=== PATIENT | male | born 1965 | race Two or more races ===

== ENCOUNTER 2016-02-27 02:36 | Emergency (ER) | payer MEDICAID ==
[~2016-02-27] VITALS: Ht 182.9 cm; Wt 110.2 kg
[~2016-02-27 02:36] MED LIST: ASPI81CH43 PO; ATOR20TA50 PO; LISI40TA PO
[2016-02-27 03:24] LABS: Basophils # (auto) 0 uL; Basophils % (auto) 0.6 % (0.0-2.0); Eosinophils # (auto) 0.1 uL; Hematocrit 44.7 % (41.0-53.0); Hemoglobin 14.6 g/dL (13.5-17.5); Lymphocytes # (auto) 1.8 uL; Lymphocytes % (auto) 25.2 % (10.0-50.0); Mean Corpuscular Hemoglobin 30.2 pg (28.0-32.0); Mean Corpuscular Hgb Conc. 32.8 g/dL (32.0-36.0); Mean Platelet Volume 7.2 fL (7.4-10.4); Monocytes # (auto) 0.5 uL; Neutrophils # (auto) 4.6 uL; Neutrophils % (auto) 65.2 % (37.0-80.0); Platelet Count (auto) 325 10^3/uL (140-450); Red Cell Distribution Width 13.2 % (11.6-16.0); White Blood Cell 7.1 10^3/uL (4.4-10.8)
[2016-02-27 03:48] LABS: Albumin 3.8 g/dL (3.4-5.0); BUN/Creatinine Ratio 13.5; Calcium 8.6 mg/dL (8.5-10.1); Magnesium 2.3 mg/dL (1.6-2.6); Potassium 4.2 mmol/L (3.5-5.1)
[2016-02-27 03:51] LABS: Bilirubin, Total 0.4 mg/dL (0.2-1.0); Total Protein 7.9 g/dL (6.4-8.2)
[2016-02-27] MEDS ORDERED: ONDANSETRON HCL 4 MG/2 ML VIAL IV ONE (09:45)
[2016-02-27] MEDS ORDERED: MORPHINE SULFATE 4 MG/ML SYRG IV ONE (09:45)
[2016-02-27] MEDS ORDERED: ASPirin 81 mg TAB PO ONE (09:45)
[2016-02-27 10:48] LABS: INR 1.02 (0.9-1.15); Partial Thromboplastin Time 29.1 sec (22.64-33.71); Prothrombin Time 10.5 sec (9.37-12.3)
[2016-02-27 10:59] LABS: B-Type Natriuretic Peptide < 5.0 pg/mL (0-100)
[2016-02-27 12:07] VITALS: BP 140/98
== END 2016-02-27 12:10 | disposition left against medical advice (07) ==
LOC: ER 02:37
DX: I24.9 Acute ischemic heart disease, unspecified (principal); I25.2 Old myocardial infarction; I10 Essential (primary) hypertension; I25.10 Atherosclerotic heart disease of native coronary artery without angina pectoris; E78.5 Hyperlipidemia, unspecified; Z79.899 Other long term (current) drug therapy; Z88.8 Allergy status to other drugs, medicaments and biological substances; Z98.61 Coronary angioplasty status
CPT/HCPCS: 36415; 71020; 80053; 83735; 83880; 84484; 85025; 85610; 85730; 93005; 94761

== ENCOUNTER 2022-10-25 09:56 | Emergency (ER) | payer MEDICAID ==
[~2022-10-25] VITALS: Ht 182.9 cm; Wt 116.0 kg
[~2022-10-25 09:56] MED LIST changes: -LISI40TA PO; +LISI40TA16 PO
[2022-10-25] MEDS ORDERED: SODIUM CHLORIDE 0.9% 1,000 ML IV ONE (10:30)
[2022-10-25 10:41] LABS: Basophils # (auto) 0.1 10 ^3/uL (0-0.2); Basophils % (auto) 0.8 % (0.0-2.0); Eosinophils # (auto) 0.1 10 ^3/uL (0-0.8); Eosinophils % (auto) 1.8 % (0.0-7.0); Hematocrit 44.5 % (41.0-53.0); Hemoglobin 14.6 g/dL (13.5-17.5); Lymphocytes # (auto) 1.3 10 ^3/uL (0.4-5.4); Lymphocytes % (auto) 16.7 % (10.0-50.0); Mean Corpuscular Hemoglobin 30.5 pg (28.0-32.0); Mean Corpuscular Hgb Conc. 32.9 g/dL (32.0-36.0); Mean Corpuscular Volume 92.7 fL (80.0-100.0); Monocytes # (auto) 0.6 10 ^3/uL (0-1.3); Neutrophils # (auto) 5.6 10 ^3/uL (1.6-8.6); Neutrophils % (auto) 72.7 % (37.0-80.0); Red Cell Distribution Width 13.7 % (11.8-14.3); White Blood Cell 7.6 10^3/uL (4.4-10.8)
[2022-10-25 11:00] VITALS: RESP 18; O2SAT 98
[2022-10-25 11:09] LABS: Alanine Aminotransferase 46 U/L (7-40); Albumin 4.6 g/dL (3.2-4.8); Alkaline Phosphatase 104 U/L (46-116); Anion Gap 5.9 (5-15); Aspartate Aminotransferase 17 U/L (13-40); BUN/Creatinine Ratio 13.1 (10.0-20.0); Bilirubin, Total 0.4 mg/dL (0.2-1.0); Blood Urea Nitrogen 11 mg/dL (9-23); Calcium 9.6 mg/dL (8.5-10.1); Carbon Dioxide 28.1 mmol/L (20-30); Chloride 105 mmol/L (98-107); Glucose 114 mg/dL (74-106); Potassium 4.2 mmol/L (3.5-5.1); Sodium 139 mmol/L (136-145); Total Protein 7.2 g/dL (5.7-8.2)
[2022-10-25 11:34] LABS: Urine Bacteria NONE SEEN /hpf (None Seen); Urine Blood TRACE /uL (Negative); Urine Clarity Clear (Clear); Urine Color Colorless (Yellow); Urine Protein, UAD Negative (Negative); Urine Specific Gravity 1.006 (1.001-1.035); Urine Urobilinogen Normal (Negative); Urine WBC <1 /hpf (0 - 3); Urine pH 7.5 (5.0-8.0)
[2022-10-25 12:09] VITALS: BP 173/111
[2022-10-25 12:56] VITALS: PULSE 83
== END 2022-10-25 15:42 | disposition left against medical advice (07) ==
LOC: ER 09:56
DX: R53.1 Weakness (principal); E78.5 Hyperlipidemia, unspecified; I10 Essential (primary) hypertension; I25.2 Old myocardial infarction; Z88.6 Allergy status to analgesic agent
CPT/HCPCS: 36415; 71045; 80053; 81001; 82010; 82550; 82962; 83605; 83735; 84484; 85025; 93005; 96360; 99285; J7030

== ENCOUNTER 2023-02-20 04:38 | Emergency (ER) | payer MEDICAID ==
[~2023-02-20] VITALS: Ht 182.9 cm; Wt 118.0 kg
[2023-02-20 05:41] LABS: Basophils # (auto) 0 10 ^3/uL (0-0.2); Basophils % (auto) 0.1 % (0.0-2.0); Eosinophils # (auto) 0 10 ^3/uL (0-0.8); Eosinophils % (auto) 0.4 % (0.0-7.0); Hematocrit 42.4 % (41.0-53.0); Hemoglobin 14.2 g/dL (13.5-17.5); Lymphocytes # (auto) 0.9 10 ^3/uL (0.4-5.4); Lymphocytes % (auto) 14.1 % (10.0-50.0); Mean Corpuscular Hemoglobin 30.7 pg (28.0-32.0); Mean Corpuscular Hgb Conc. 33.5 g/dL (32.0-36.0); Mean Corpuscular Volume 91.7 fL (80.0-100.0); Monocytes # (auto) 0.4 10 ^3/uL (0-1.3); Monocytes % (auto) 7.3 % (0.0-12.0); Neutrophils # (auto) 4.8 10 ^3/uL (1.6-8.6); Neutrophils % (auto) 78.1 % (37.0-80.0); Red Blood Cells 4.62 10^6/uL (4.5-5.90); Red Cell Distribution Width 13.7 % (11.8-14.3); White Blood Cell 6.1 10^3/uL (4.4-10.8)
[2023-02-20 05:50] LABS: INR 0.98 (0.9-1.15); Partial Thromboplastin Time 33.8 SEC (24.5-34.5); Prothrombin Time 10.3 sec (9.3-11.8)
[2023-02-20 05:56] LABS: Alanine Aminotransferase 43 U/L (7-40); Albumin 4.6 g/dL (3.2-4.8); Alkaline Phosphatase 74 U/L (46-116); Anion Gap 6 (5-15); Aspartate Aminotransferase 28 U/L (13-40); Carbon Dioxide 26 mmol/L (20-30); Chloride 103 mmol/L (98-107); Glucose 123 mg/dL (74-106); Magnesium 1.9 mg/dL (1.6-2.6); Sodium 135 mmol/L (136-145)
[2023-02-20 05:57] LABS: Bilirubin, Total 0.7 mg/dL (0.2-1.0); Total Protein 7.5 g/dL (5.7-8.2)
[2023-02-20 07:06] LABS: BUN/Creatinine Ratio 6.7 (10.0-20.0); Blood Urea Nitrogen 6 mg/dL (9-23)
[2023-02-20] MEDS ORDERED: cefTRIAXone SOD 1,000 MG VL IM ONE (08:00)
[2023-02-20 08:16] VITALS: BP 128/86; PULSE 82; RESP 17; TEMP 98.8; O2SAT 96
[2023-02-20] MEDS ORDERED: LEVO500T91 PO (08:50)
== END 2023-02-20 09:06 | disposition home or self-care (01) ==
LOC: ER 04:38
DX: J40 Bronchitis, not specified as acute or chronic (principal); R07.89 Other chest pain; I10 Essential (primary) hypertension; I25.2 Old myocardial infarction; E78.5 Hyperlipidemia, unspecified; I25.10 Atherosclerotic heart disease of native coronary artery without angina pectoris; Z98.890 Other specified postprocedural states
CPT/HCPCS: 36415; 71045; 80053; 83735; 83880; 84484; 85025; 85379; 85610; 85730; 93005; 96372; 99285; J0696

== ENCOUNTER 2024-11-26 07:40 | Emergency (ER) | payer MEDICAID ==
[~2024-11-26] VITALS: Ht 182.9 cm; Wt 119.3 kg
[~2024-11-26 07:40] MED LIST changes: +LEVO500T91 PO
--- NOTE | 2024-11-26 08:08 | ED.PDOC ---
HPI (NEURO) HPI Comments HPI: This is a 59 year old male presenting to the ED with chief complaint of dizziness. Patient reports that after he had woken up and drank his coffee this morning, he began to experience dizziness with associated imbalance. Patient relays that he had felt normal last night before bed. Patient denies any chest pain, SOB, nausea, vomiting, or syncope. Initial Vitals BP: 143/90 HR: 80 RR: 18 O2: 95% Temp: 98.3F Past Medical History: CAD, HTN, HLD NE, DM Past Surgical History: Hernia Repair, Cardiac Stent Social History: Denies ETOH, smoking, and drug use. Medications: Reviewed Allergies: Atenolol, Beta Blockers, Clopidogrel, Steroids BALDOMERO: HPI: Poor Historian. REVIEW OF SYSTEMS: CONSTITUTIONAL: Denies acute: fever, diaphoresis, chills, HEAD: Denies acute: photophobia Eyes: Denies acute: Double vision, vision loss, eye pain, eye discharge. EARS: Denies acute: tinnitus, hearing loss, ear discharge, ear pain, THROAT: Denies acute: sore throat, swelling, difficulty swallowing , pain with swallowing, change in voice. NECK: Denies acute: neck pain, neck swelling, stiff neck. HEART: Denies acute : chest pain, palpitations, LUNGS: Denies acute: SOB, wheezing, cough, hemoptysis ABDOMEN: Denies acute: abdominal pain, Nausea, Vomiting, diarrhea, melena , hematemesis, hematochezia SKIN: Denies acute: rash, redness, lesions, itchiness. EXTREMITIES: Denies acute: calf pain, numbness, tingling, weakness, denies pain in extremity. Denies acute: Low back pain. Neuro: Denies acute: focal neurological deficit, motor or sensory focal neurological deficit, tremors, seizure like activity, confusion, change in mental status, loss of bowel or bladder function, cauda equina like symptoms. : Denies acute: dysuria, hematuria, flank pain, increase in urinary frequency. PSYCH: Denies acute: hallucination, suicidal ideation, homicidal ideation. PHYSICAL EXAM: General: ---mild-----acute distress, awake and alert. Head: normocephalic, atraumatic. Neck: supple, trachea is midline, no swelling. Throat: Normal phonation. Eyes:, no erythema, no purulent discharge, no proptosis, no icterus. Heart: regular rate, regular rhythm, no significant murmur appreciated. Lungs: no apparent respiratory distress, Able to speak in full sentences. No wheezing, no rhonchi, no crackles. No stridors Clear to auscultation bilaterally. Abdomen: non tender to palpation, non distended, soft, no guarding, no rebound, + bowel sounds. Neuro: Awake, Alert, oriented to name, self, situation, follows commands GCS=15. Speech is normal. Skin: no petechia, no purpura, no cyanosis, non-pale, not jaundice. Lower extremities: --no - Pitting edema no deformity, no focal swelling, no calf TTP. Makes eye contact. moves all four extremities. Face: no apparent facial droop. Ambulating in the ED independently. Stroke: finger to nose cerebellar testing is intact. No pronator drift. PERRLA, EOM-I CN 2-12 are grossly intact, No nystagmus. No nuchal rigidity, Kernig's sign, Brudzinski's sign, no meningeal signs. ED COURSE: DISCLAIMER: This medical document was created using an electronic medical record system with voice recognition software and computerized dictation system. Although this document has been carefully reviewed, there might still be some phonetic and typographical errors. Occasional wrong-word or "sound-alike" substitutions may have occurred due to the inherent limitations of voice recognition software. These areas are purely typographical due to imperfections of the software programs and do not reflect any compromise in the patient's medical care. Please read the chart carefully and recognize, using context, where these substitutions have occurred. Chief Complaint: Dizziness Time Seen by MD: 08:04 Primary Care Provider: ALEIDA Reviewed Notes: Medications, Allergies Information Source: Patient Mode of Arrival: Ambulatory Was a procedure done? Was a procedure done?: No Differential Diagnosis (SZ) General Weakness: Anemia, CVA, Dehydration, Dysrhythmia, Electrolyte imbalance, Encephalopathy, Guillain-[place], Hypoglycemia, Hypotension, Hypovolemia, Labyrint hitis, Meniere's disease, Myasthenia gravis, Myocardial infarction, Pulmonary embolus, Renal failure, Repiratory failure, TIA, VBI, Vertigo: central, Vertigo: peripheral, Vestibular neuronitis X-Ray, Labs, Meds, VS Vital Signs Date Time Temp Pulse Resp B/P (MAP) Pulse Ox O2 Delivery O2 Flow Rate FiO2 11/26/24 13:00 98.0 65 18 140/86 (104) 99 98.0 11/26/24 13:00 65 18 99 Room Air 11/26/24 07:54 74 11/26/24 07:45 98.3 80 18 143/90 95 98.3 Lab Test 11/26/24 09:36 11/26/24 08:58 11/26/24 08:09 Range/Units Urine Color Light-yellow Yellow Urine Clarity Clear Clear Urine pH 6.0 5.0-9.0 Urine Specific [place] 1.005 1.001-1.035 Urine Protein Negative Negative Urine Ketones Negative Negative Urine Blood Trace H Negative /uL Urine Nitrite Negative Negative Urine Bilirubin Negative Negative Urine Urobilinogen Normal Negative mg/dL Urine Leukocyte Esterase Negative Negative /uL Urine RBC <1 0 - 3 /hpf Urine Microscopic WBC < 1 0-3 /HPF Urine Squamous Epithelial Cells None seen <5 /hpf Urine Bacteria None seen None Seen /hpf Urine Glucose Normal Normal mg/dL Troponin I High Sensitivity < 3 L < 3 L </=54 ng/L White Blood Count 6.6 4.4-10.8 10^3/uL Red Blood Count 4.86 4.5-5.90 10^6/uL Hemoglobin 14.9 13.5-17.5 g/dL Hematocrit 43.9 41.0-53.0 % Mean Corpuscular Volume 90.3 80.0-100.0 fL Mean Corpuscular Hemoglobin 30.7 28.0-32.0 pg Mean Corpuscular Hemoglobin Concent 34.0 32.0-36.0 g/dL Red Cell Distribution Width 13.9 11.8-14.3 % Platelet Count 331 140-450 10^3/uL Mean Platelet Volume 7.0 6.9-10.8 fL Neutrophils (%) (Auto) 71.1 37.0-80.0 % Lymphocytes (%) (Auto) 18.8 10.0-50.0 % Monocytes (%) (Auto) 7.3 0.0-12.0 % Eosinophils (%) (Auto) 2.0 0.0-7.0 % Basophils (%) (Auto) 0.8 0.0-2.0 % Neutrophils # (Auto) 4.7 1.6-8.6 10 ^3/uL Lymphocytes # (Auto) 1.2 0.4-5.4 10 ^3/uL Monocytes # (Auto) 0.5 0-1.3 10 ^3/uL Eosinophils # (Auto) 0.1 0-0.8 10 ^3/uL Basophils # (Auto) 0.1 0-0.2 10 ^3/uL Nucleated Red Blood Cells 0.0 % Sodium Level 139 136-145 mmol/L Potassium Level 3.9 3.5-5.1 mmol/L Chloride Level 103 98-107 mmol/L Carbon Dioxide Level 26 20-31 mmol/L Anion Gap 10 5-15 Blood Urea Nitrogen 11 9-23 mg/dL Creatinine 0.97 0.700-1.30 mg/dL Glomerular Filtration Rate Calc 89 >90 mL/min BUN/Creatinine Ratio 11.3 10.0-20.0 Serum Glucose 120 H 74-106 mg/dL Lactic Acid Level 1.3 0.4-2.0 mmol/L Calcium Level 9.7 8.7-10.4 mg/dL Magnesium Level 2.1 1.6-2.6 mg/dL Total Bilirubin 0.6 0.2-1.0 mg/dL Aspartate Amino Transferase (AST) 26 13-40 U/L Alanine Aminotransferase (ALT) 33 7-40 U/L Alkaline Phosphatase 89 46-116 U/L Total Protein 8.0 5.7-8.2 g/dL Albumin 4.8 3.2-4.8 g/dL [address] [address] Ph: [phone] DIAGNOSTIC IMAGING Diagnostic Imaging Report : [id number] Signed PATIENT: SJ ALEXANDRE ACCT: [id number] UNIT: [id number] : 1965 LOC: ER ROOM / BED: / AGE / SEX: 59 / M ADM STATUS: REG ER SERVICE 0755 ORDERING PHYSICIAN: ÁNGELA JAFFE DO PROCEDURE(s): CXRP - CHEST PORTABLE REASON: dizzy, ZENG ORDER NUMBER(s): [id number], ACCESSION NUMBER(s): [id number] CHEST RADIOGRAPH Indication: dizzy, ZENG Technique: Single frontal view of the chest was obtained COMPARISON: XY CHEST PORTABLE on DOS: 02/20/23, XY CHEST PORTABLE on DOS: 10/25/22 FINDINGS: Lines and Tubes: None Lungs: Clear Pleura: No effusion. No pneumothorax. Cardiomediastinal contours: Unremarkable Bones: Unremarkable IMPRESSION: No acute disease. ATED BY: MEET KING MD DICTATED DATE/TIME: 11/26/24848 SIGNED BY: MEET KING MD SIGNED DATE/TIME: 11/26/24848 CC: [place] [id number] Ph: [phone] DIAGNOSTIC IMAGING Diagnostic Imaging Report : [id number] Signed PATIENT: SJ ALEXANDRE ACCT: [id number] UNIT: [id number] : 1965 LOC: ER ROOM / BED: / AGE / SEX: 59 / M ADM STATUS: REG ER SERVICE 0755 ORDERING PHYSICIAN: ÁNGELA JAFFE DO PROCEDURE(s): HWOCT - HEAD WITHOUT CONTRAST REASON: AZUCENA cox ORDER NUMBER(s): [id number], ACCESSION NUMBER(s): [id number] INDICATION: dizzy, ZENG TECHNIQUE: Multidetector row CT of the head was performed without administration of intravenous contrast. Dose lowering techniques have been used including automated exposure control and adjustment of mA and/or kv according to patient size. COMPARISON: None FINDINGS: There is no evidence of acute intracranial hemorrhage or infarct. There is no mass effect or shifting of midline structures. Generalized cerebral and cerebellar atrophy with prominence of sulci and ventricles. Periventricular white matter hypodensity likely reflect small vessel ischemic changes. No depressed calvarial fracture. DLP is 1185.64 mGy-cm. CTDI vol is 53.74 mGy. IMPRESSION: 1. No acute intracranial abnormality. 2. Senescent changes. ATED BY: DAWIT INMAN MD DICTATED DATE/TIME: 11/26/24849 SIGNED BY: DAWIT INMAN MD SIGNED DATE/TIME: 11/26/24849 CC: Time of 1ST Reevaluation: 09:04 Reevaluation 1ST: Unchanged Patient Education/Counseling: Diagnosis, Treatment Family Education/Counseling: No Family Present Comments MDM: patient presented with the above HPI.---dizziness---workup was initiated. patient was found with the above mentioned diagnosis. the following medications were ordered: please refer to order lists of meds and tests obtained by myself Dr. Jaffe. Patient ED course and VS have been stabilized. Patient has been reassessed in the ED and remained in a stable condition. Pertinent incidental findings were discussed with the patient and/or family. Patient/family voices understanding and is agreeable with plan. Patient has been observed in the ED adequate length of time to insure improvement/stability. Escalation of care considered: Consideration of escalation to observation or admission Patient was DISCHARGED home in a stable condition. All the reports of any imaging studies that were ordered by myself were reviewed by myself. Departure 1 Departure Time of Disposition: 12:49 Impression: Primary Impression: Dizziness, nonspecific Disposition: 01 HOME / SELF CARE / HOMELESS Condition: Stable Additional Instructions: Additional instructions: Please read all instructions provided in this packet carefully. You MUST follow-up with your primary care/family doctor in 1 to 2 days. If you are unable to see your primary care/family doctor, please return to our emergency room for re-assessment and re-evaluation in 1 to 2 days. Return to the emergency room here in our facility or to the nearest ER [facility] if your symptoms change or worsen. CONSULTATIONS: you MUST Follow-up for consultation as soon as possible with: --neurology and cardiology in 1-2 days. Please call for appointment. You MUST call the consultants office yourself to make an appointment. You may need to arrange that through your insurance and/or your primary/family doctor. If you are unable to see the franchise business consultant in 1 to 2 days, you must return to our emergency room (or any other ER of your choice) for re-assessment and re- evaluation. Adequate fluid hydration. Although you have been discharged from the Emergency Department, this does not mean that you have a "clean bill of health". No definitive diagnosis for your symptoms has been made today. It is possible that you are in the process of developing a serious illness. This is why you must return to the ED without fail if any new or worsening symptoms develop. Below is a copy of your radiological report for follow up: [place] [id number] [facility] [address] Ph: [phone] DIAGNOSTIC IMAGING Diagnostic Imaging Report : [id number] Signed PATIENT: SJ ALEXANDRE ACCT: [id number] UNIT: [id number] : 1965 LOC: ER ROOM / BED: / AGE / SEX: 59 / M ADM STATUS: REG ER SERVICE [id number] ORDERING PHYSICIAN: ÁNGELA JAFFE DO PROCEDURE(s): HWOCT - HEAD WITHOUT CONTRAST REASON: dizzy, ZENG ORDER NUMBER(s): [id number], ACCESSION NUMBER(s): [id number] INDICATION: dizzy, ZENG TECHNIQUE: Multidetector row CT of the head was performed without administration of intravenous contrast. Dose lowering techniques have been used including automated exposure control and adjustment of mA and/or kv according to patient size. COMPARISON: None FINDINGS: There is no evidence of acute intracranial hemorrhage or infarct. There is no mass effect or shifting of midline structures. Generalized cerebral and cerebellar atrophy with prominence of sulci and ventricles. Periventricular white matter hypodensity likely reflect small vessel ischemic changes. No depressed calvarial fracture. DLP is 1185.64 mGy-cm. CTDI vol is 53.74 mGy. IMPRESSION: 1. No acute intracranial abnormality. 2. Senescent changes. ATED BY: DAWIT INMAN MD DICTATED DATE/TIME: 11/26/24849 SIGNED BY: DAWIT INMAN MD SIGNED DATE/TIME: 11/26/24849 CC: Discharged With: Self Critical Care Note Critical Care Time?: No I personally scribed for ÁNGELA JAFFE DO ([email or web address]) on 11/26/24 at 08:08. Electronically submitted by Dong Colvin ([email or web address]). I personally scribed for ÁNGELA JAFFE DO ([email or web address]) on 11/26/24 at 11:08. Electronically submitted by Dong Colvin ([email or web address]). ÁNGELA JAFFE DO Nov 26, 2024 08:08
[2024-11-26 08:28] LABS: Hematocrit 43.9 % (41.0-53.0); Hemoglobin 14.9 g/dL (13.5-17.5); Mean Corpuscular Hemoglobin 30.7 pg (28.0-32.0); Mean Corpuscular Volume 90.3 fL (80.0-100.0); Nucleated Red Blood Cells % 0.0 %
[2024-11-26 08:46] LABS: Alanine Aminotransferase 33 U/L (7-40); Alkaline Phosphatase 89 U/L (46-116); Anion Gap 10 (5-15); BUN/Creatinine Ratio 11.3 (10.0-20.0); Blood Urea Nitrogen 11 mg/dL (9-23); Calcium 9.7 mg/dL (8.7-10.4); Carbon Dioxide 26 mmol/L (20-31); Chloride 103 mmol/L (98-107); Magnesium 2.1 mg/dL (1.6-2.6); Potassium 3.9 mmol/L (3.5-5.1); Sodium 139 mmol/L (136-145); Total Protein 8.0 g/dL (5.7-8.2)
[2024-11-26 08:47] LABS: Albumin 4.8 g/dL (3.2-4.8); Bilirubin, Total 0.6 mg/dL (0.2-1.0); Glucose 120 mg/dL (74-106)
--- NOTE | 2024-11-26 08:51 | DVH ---
CHEST RADIOGRAPH Indication: dizzy, ZENG Technique: Single frontal view of the chest was obtained COMPARISON: XY CHEST PORTABLE on DOS: 02/20/23, XY CHEST PORTABLE on DOS: 10/25/22 FINDINGS: Lines and Tubes: None Lungs: Clear Pleura: No effusion. No pneumothorax. Cardiomediastinal contours: Unremarkable Bones: Unremarkable IMPRESSION: No acute disease.
--- NOTE | 2024-11-26 08:53 | DVH ---
INDICATION: dizzy, ZENG TECHNIQUE: Multidetector row CT of the head was performed without administration of intravenous contr ast. Dose lowering techniques have been used including automated exposure control and adjustment of mA and /or kv according to patient size. COMPARISON: None FINDINGS: There is no evidence of acute intracranial hemorrhage or infarct. There is no mass effect or shifting of midline structures. Generalized cerebral and cerebellar atroph y with prominence of sulci and ventricles. Periventricular white matter hypodensity likely reflect sm all vessel ischemic changes. No depressed calvarial fracture. DLP is 1185.64 mGy-cm. CTDI vol is 53.74 mGy. IMPRESSION: 1. No acute intracranial abnormality. 2. Senescent changes.
--- NOTE | 2024-11-26 08:59 | ECG ---
[facility] Test Date: 2024-11-26 Test Time: 07:54:25 Pat Name: SJ ALEXANDRE Department: Room: Gender: M Resource Teacher: GAURANG : 1965 Requested By: ÁNGELA JAFFE Order Number: [id number] Reading MD: Lars Ellington Measurements Intervals [place] Rate: 74 P: 57 CO: 143 QRS: -11 QRSD: 94 T: 55 QT: 382 QTc: 424 Interpretive Statements Sinus rhythm Abnormal R-wave progression, early transition Electronically Signed On 11-27-2024 22:15:25 PDT by Lars Ellington Please click the below link to view image of tracing.
[2024-11-26 10:18] LABS: Urine Protein, UAD Negative (Negative)
[2024-11-26] MEDS: MECLIZINE HCL 25 MG TAB PO ONE (11:40)
[2024-11-26] MEDS: SODIUM CHLORIDE 0.9% 1,000 ML IV ONE (11:44)
[2024-11-26 13:00] VITALS: BP 140/86; PULSE 65; RESP 18; TEMP 98; O2SAT 99
== END 2024-11-26 13:14 | disposition home or self-care (01) ==
LOC: ER 07:43
DX: R42 Dizziness and giddiness (principal); I10 Essential (primary) hypertension; E78.5 Hyperlipidemia, unspecified; E11.649 Type 2 diabetes mellitus with hypoglycemia without coma; Z98.890 Other specified postprocedural states; Z95.5 Presence of coronary angioplasty implant and graft
CPT/HCPCS: 36415; 70450; 71045; 80053; 81001; 83605; 83735; 84484; 85025; 93005; 96360; 99285; J7030; J8597